=== PATIENT | female | born 1990 | race Caucasian/White ===

== ENCOUNTER 2019-12-27 16:00 | Observation (INO) ==
[2019-12-27] MEDS ORDERED: *HR* HYDROmorphone (PF) 1 MG/ML SYRINGE IVP ONE (16:32)
[2019-12-27] MEDS ORDERED: *HR* OxyCODONE/APAP 5/325 TABLET PO ONE (17:24)
[2019-12-27] MEDS ORDERED: *HR* HYDROmorphone (PF) 1 MG/ML SYRINGE IVP STA (17:35)
[2019-12-27] MEDS ORDERED: D5% in Water 1,000 ML IVC PRN (17:53)
[2019-12-27] MEDS ORDERED: Dextrose Gel 15 GM/37.5 ML TUBE PO PRN ×2 (17:53)
[2019-12-27] MEDS ORDERED: Naloxone 0.4 MG/ML INJ IVP PRN (17:53)
[2019-12-27] MEDS ORDERED: *HR* Dextrose 50 % in Water (Vial) 50 ML VIAL IVP PRN (17:53)
[2019-12-27 18:27] LABS: Basophils # 0.1 K/mcL (0.0-0.2); Basophils % 0.7 %; Eosinophils % 0.2 %; Hematocrit 41.9 % (35.3-44.9); Hemoglobin 14.2 g/dL (11.5-15.4); Immature Granulocytes % 0.4 % (0-4); Lymphocytes # 0.6 K/mcL (0.6-4.6); Lymphocytes % 5.8 %; Mean Corpuscular HGB Conc 33.9 g/dL (31.6-35.5); Mean Corpuscular Volume 88.4 fL (83.0-100.0); Mean Platelet Volume 12.7 fL (9.4-12.4); Monocytes # 0.6 K/mcL (0.0-1.3); Monocytes % 6.1 %; Platelet Count 266 K/mcL (140-400); Red Blood Count 4.74 M/mcL (3.82-4.97); Red Cell Distribution Width 13.6 % (11.5-14.5); Segmented Neutrophils % 86.8 %; White Blood Count 10.3 K/mcL (4.3-11.1)
[2019-12-27 18:29] LABS: Prothrombin Time 11.8 Seconds (9.4-12.1)
[2019-12-27 18:32] LABS: Activated Partial Thrombo Time 29.4 Seconds (26.0-36.0)
[2019-12-27 18:40] LABS: BUN/Creatinine Ratio 18 (6-26); Blood Urea Nitrogen 11 mg/dL (6-20); Carbon Dioxide 22 mEq/L (23-29); Chloride 104 mEq/L (98-107); Glucose 174 mg/dL (70-105); Osmolality,Calculated 282 (280-300); Potassium 3.8 mEq/L (3.5-5.1); Sodium 134 mEq/L (136-145); eGFR For African Americans > 60 (> 60); eGFR For Non-African Americans > 60 (> 60)
[2019-12-27] MEDS: Ondansetron 4 MG/2 ML VIAL IVP PRN (19:15)
[2019-12-27] MEDS: *HR* HYDROmorphone (PF) 1 MG/ML SYRINGE IVP PRN ×2 (20:21→22:47)
[2019-12-27] MEDS ORDERED: NORETHINDRONE E ESTRADIOL IRON PO SCH (21:00)
[2019-12-27] MEDS ORDERED: Insulin DETEMIR 100 UNIT/ML X5UNITS SQ SCH (21:00)
[2019-12-27] MEDS ORDERED: *HR* Promethazine 25 MG/ML VIAL IVP ONE (22:32)
[2019-12-28] MEDS ORDERED: Acetaminophen IV 1,000 MG/100 ML BAG IVPB ONE (01:18)
[2019-12-28] MEDS ORDERED: Ketorolac 15 MG/ML VIAL IVP ONE (01:18)
[2019-12-28] MEDS: *HR* HYDROmorphone (PF) 1 MG/ML SYRINGE IVP PRN (02:23)
[2019-12-28] MEDS ORDERED: *HR* OxyCODONE Immed Rel 15 MG TABLET PO ONE (03:13)
[2019-12-28 04:51] LABS: Basophils # 0.1 K/mcL (0.0-0.2); Basophils % 0.9 %; Eosinophils # 0.1 K/mcL (0.0-0.6); Eosinophils % 0.9 %; Hematocrit 42.9 % (35.3-44.9); Hemoglobin 14.4 g/dL (11.5-15.4); Immature Granulocytes % 0.3 % (0-4); Lymphocytes # 1.4 K/mcL (0.6-4.6); Lymphocytes % 20.7 %; Mean Corpuscular HGB Conc 33.6 g/dL (31.6-35.5); Mean Corpuscular Hemoglobin 30.5 pg (28.0-33.3); Mean Corpuscular Volume 90.9 fL (83.0-100.0); Mean Platelet Volume 12.3 fL (9.4-12.4); Monocytes # 0.8 K/mcL (0.0-1.3); Monocytes % 11.3 %; Neutrophils # 4.6 K/mcL (1.6-8.9); Platelet Count 241 K/mcL (140-400); Red Blood Count 4.72 M/mcL (3.82-4.97); Red Cell Distribution Width 13.7 % (11.5-14.5); Segmented Neutrophils % 65.9 %
[2019-12-28 05:09] LABS: BUN/Creatinine Ratio 13 (6-26); Blood Urea Nitrogen 9 mg/dL (6-20); Calcium 8.4 mg/dL (8.6-10.3); Carbon Dioxide 23 mEq/L (23-29); Chloride 106 mEq/L (98-107); Glucose 89 mg/dL (70-105); Osmolality,Calculated 280 (280-300); Potassium 3.5 mEq/L (3.5-5.1); Sodium 136 mEq/L (136-145); eGFR For African Americans > 60 (> 60); eGFR For Non-African Americans > 60 (> 60)
[2019-12-28] MEDS ORDERED: *HR* HYDROcodone/Acet 5/325 mg TABLET PO PRN ×2 (08:08→20:16)
[2019-12-28] MEDS ORDERED: Acetaminophen 325 MG TABLET PO PRN ×2 (08:08→20:16)
[2019-12-28] MEDS: Insulin LISPRO 300 UNITS/3 ML VIAL SQ SCH ×3 (08:18→17:09)
[2019-12-28] MEDS: Ringers Solution, Lactated 1,000 ML IVC SCH ×2 (08:18→19:50)
[2019-12-28] MEDS ORDERED: D5% in Lactated Ringers 1,000 ML IVC SCH (10:15)
[2019-12-28] MEDS ORDERED: *HR* HYDROmorphone (PF) 1 MG/ML SYRINGE IVP PRN ×2 (14:35→20:16)
[2019-12-28] MEDS ORDERED: Lidocaine/EPI 1:200k 1% PF 10 ML VIAL ONE (16:44)
[2019-12-28] MEDS ORDERED: *HR* Succinylcholine 200 MG/10 ML VIAL IVP ONE (17:05)
[2019-12-28] MEDS ORDERED: *HR* FentaNYL (PF) 100 MCG/2 ML VIAL ONE ×2 (17:36→17:50)
[2019-12-28] MEDS ORDERED: Lidocaine -MPF 2% 2 ML VIAL ONE ×2 (17:38→17:50)
[2019-12-28] MEDS ORDERED: Ropivacaine/PF 0.5% 30 ML VIAL ONE (17:39)
[2019-12-28] MEDS ORDERED: *HR* Midazolam HCl 2 MG/2 ML VIAL ONE (17:39)
[2019-12-28] MEDS ORDERED: Dexamethasone 4 MG/ML VIAL ONE (17:50)
[2019-12-28] MEDS ORDERED: Ondansetron 4 MG/2 ML VIAL ONE (17:50)
[2019-12-28] MEDS ORDERED: *HR* Propofol 200 MG/20 ML VIAL IVP ONE (17:50)
[2019-12-28] MEDS ORDERED: Clindamycin 900 MG/50 ML 900 MG/50 ML IV.SOLN IVPB ONE (18:05)
[2019-12-28] MEDS ORDERED: *HR* PHENYLEPHRINE 1,000 MCG/10 ML SYRINGE IVP ONE (18:07)
[2019-12-28] MEDS ORDERED: EPHEDrine 50 MG/ML VIAL ONE (18:32)
[2019-12-28] MEDS ORDERED: *HR* Promethazine 25 MG/ML VIAL IVP PRN ×3 (19:37→21:08)
[2019-12-28] MEDS ORDERED: Ondansetron 4 MG/2 ML VIAL IVP ONE ×2 (19:37→20:16)
[2019-12-28] MEDS: Ondansetron 4 MG/2 ML VIAL IVP PRN (19:39)
[2019-12-28] MEDS ORDERED: Ringers Solution, Lactated 1,000 ML ONE (19:44)
[2019-12-28] MEDS ORDERED: D5% in Water 1,000 ML IVC PRN (20:16)
[2019-12-28] MEDS ORDERED: *HR* Dextrose 50 % in Water (Vial) 50 ML VIAL IVP PRN (20:16)
[2019-12-28] MEDS ORDERED: Ondansetron 4 MG/2 ML VIAL IVP PRN (20:16)
[2019-12-28] MEDS ORDERED: Dextrose Gel 15 GM/37.5 ML TUBE PO PRN ×2 (20:16)
[2019-12-28] MEDS ORDERED: Naloxone 0.4 MG/ML INJ IVP PRN (20:16)
[2019-12-28] MEDS ORDERED: Insulin DETEMIR 100 UNIT/ML X5UNITS SQ SCH (21:00)
[2019-12-29] MEDS: Clindamycin 900 MG/50 ML 900 MG/50 ML IV.SOLN IVPB SCH ×2 (01:21→09:08)
[2019-12-29 06:29] VITALS: BP 109/68
[2019-12-29] MEDS ORDERED: Insulin LISPRO 300 UNITS/3 ML VIAL SQ SCH (07:30)
[2019-12-29] MEDS: D5% in Lactated Ringers 1,000 ML IVC SCH ×2 (09:06→09:07)
== END 2019-12-29 12:04 | disposition home or self-care (01) ==
LOC: EMEROOARM 16:00 → 3NENU 16:00 → SUATTDRO 18:48 → 3NENU 19:51
PROVIDERS: ADMIT Internal Medicine; ATTEND Internal Medicine